=== PATIENT | male | born 1995 | race American Indian/Alaskan Native ===

== ENCOUNTER 2016-09-27 05:37 | Emergency (ER) | payer SELFPAY ==
[2016-09-27 07:30] VITALS: BP 118/73
[2016-09-27 08:29] LABS: Basophils % (Auto) 0.7 % (0.0-1.8); Hematocrit 41.2 % (35.5-45.6); Hemoglobin 13.6 gm/dl (11.8-15.2); Mean Corpuscular HGB Conc 33 % (32-34); Mean Corpuscular Hemoglobin 28 pg (28-32); Mean Corpuscular Volume 85 fl (84-94); Platelet Count 242 K/mm3 (140-440); Red Blood Count 4.84 M/mm3 (3.65-5.03); White Blood Count 5.8 K/mm3 (4.5-11.0)
[2016-09-27 08:35] LABS: Urine Drugs of Abuse Note Disclamer
[2016-09-27 08:56] LABS: Anion Gap 19 mmol/L; Blood Urea Nitrogen 12 mg/dL (9-20); Calcium 9.4 mg/dL (8.4-10.2); Carbon Dioxide 26 mmol/L (22-30); Chloride 101.3 mmol/L (98-107); Glucose 97 mg/dL (75-100); Potassium 4.4 mmol/L (3.6-5.0); Sodium 142 mmol/L (137-145)
[2016-09-27 09:12] LABS: Bilirubin,Urine NEG (Negative); Blood,Urine NEG (Negative); Ketones,Urine TR mg/dL (Negative); Leukocyte Esterase,Urine TR (Negative); Mucus,Urine 2+ /HPF; Nitrite,Urine NEG (Negative)
== END 2016-09-27 07:45 | disposition left against medical advice (07) ==
LOC: ED 05:37
DX: M79.676 Pain in unspecified toe(s) (principal); F31.9 Bipolar disorder, unspecified; E11.9 Type 2 diabetes mellitus without complications; F17.200 Nicotine dependence, unspecified, uncomplicated; F14.90 Cocaine use, unspecified, uncomplicated; Z88.8 Allergy status to other drugs, medicaments and biological substances; Z53.21 Procedure and treatment not carried out due to patient leaving prior to being seen by health care provider
CPT/HCPCS: 36415; 80048; 80307; 81001; 82962; 85025; G0480; 80320

== ENCOUNTER 2017-07-10 17:50 | Emergency (ER) | payer MEDICAID ==
[2017-07-10 18:34] LABS: Basophils # (Auto) 0.1 K/mm3 (0.0-0.1); Basophils % (Auto) 0.7 % (0.0-1.8); Eosinophils # (Auto) 0.3 K/mm3 (0.0-0.4); Eosinophils % (Auto) 3.5 % (0.0-4.3); Hematocrit 40.2 % (35.5-45.6); Hemoglobin 12.9 gm/dl (11.8-15.2); Lymphocytes # (Auto) 2.9 K/mm3 (1.2-5.4); Lymphocytes % (Auto) 37.6 % (13.4-35.0); Mean Corpuscular HGB Conc 32 % (32-34); Mean Corpuscular Hemoglobin 27 pg (28-32); Mean Corpuscular Volume 84 fl (84-94); Monocytes # (Auto) 0.7 K/mm3 (0.0-0.8); Monocytes % (Auto) 9.6 % (0.0-7.3); Platelet Count 266 K/mm3 (140-440); Red Blood Count 4.78 M/mm3 (3.65-5.03); Red Cell Distribution Width 19.5 % (13.2-15.2)
--- NOTE | 2017-07-10 18:55 | Emergency Department Report ---
ED Psych HPI - General Chief Complaint: Psych Stated Complaint: NEEDS PSYCH MEDS Time Seen by Provider: 07/10/17 18:42 Source: patient, family Mode of arrival: Ambulatory - History of Present Illness Initial Comments: Patient is 22 years old male history of schizophrenia brought by mother stating that patient has been laughing and hearing voices, very aggressive to her. His mother stated that he has been punching the air and breaking glass and tearing- up her furniture. When questioned patient started laughing. MD Complaint: altered mental status Associated Psychiatric Symptoms: auditory hallucinations History of same: Yes Quality: constant - Related Data Allergies Allergy/AdvReac Type Severity Reaction Status Date / Time tramadol Allergy Unknown Verified 09/27/16 07:20 ED Review of Systems ROS: Stated complaint: NEEDS PSYCH MEDS Other details as noted in HPI Comment: All other systems reviewed and negative Constitutional: denies: chills, fever Cardiovascular: denies: chest pain, palpitations ED Past Medical Hx - Past Medical History Hx Diabetes: No Hx Psychiatric Treatment: Yes (Bipolar, SCHZOPHENIA) - Surgical History Past Surgical History?: No Additional Surgical History: Stomach - Social History Smoking Status: Current Every Day Smoker Substance Use Type: Marijuana ED Physical Exam - General Limitations: No Limitations General appearance: alert, in no apparent distress, anxious - Head Head exam: Present: atraumatic, normocephalic - ENT ENT exam: Present: normal exam, mucous membranes moist - Respiratory Respiratory exam: Present: normal lung sounds bilaterally. Absent: respiratory distress, wheezes, chest wall tenderness - Cardiovascular Cardiovascular Exam: Present: regular rate, normal rhythm, normal heart sounds - GI/Abdominal GI/Abdominal exam: Present: soft, normal bowel sounds. Absent: distended, tenderness, guarding, rebound, rigid, mass, bruit, pulsatile mass - Back Exam Back exam: Present: normal inspection, full ROM. Absent: CVA tenderness (L) - Neurological Exam Neurological exam: Present: alert, altered, CN II-XII intact, normal gait, reflexes normal. Absent: motor sensory deficit - Psychiatric Psychiatric exam: Present: agitated - Skin Skin exam: Present: warm, intact, normal color ED Course Vital Signs 07/10/17 17:57 Temperature 97.7 F Pulse Rate 86 Respiratory 14 Rate Blood Pressure 133/87 O2 Sat by Pulse 100 Oximetry ED Medical Decision Making - Lab Data Result diagrams: 07/10/17 18:10 Critical care attestation.: If time is entered above; I have spent that time in minutes in the direct care of this critically ill patient, excluding procedure time. ED Disposition Clinical Impression: Acute psychosis Disposition: [id number]/TX-65 PSY HOSP/PSY UNIT Is pt being admited?: No Condition: Stable Referrals: PRIMARY CARE, [Primary Care Provider] - 3-5 Days
[2017-07-10 19:05] LABS: BUN/Creatinine Ratio 11; Blood Urea Nitrogen 11 mg/dL (9-20); Calcium 9.4 mg/dL (8.4-10.2); Hemolysis Index 7
[2017-07-11] MEDS ORDERED: GEODON IM ONE ×2 (09:47→09:50)
[2017-07-11] MEDS ORDERED: DESYREL PO ONE (23:17)
--- NOTE | 2017-07-12 11:24 | Consultation ---
History of Present Illness - Reason for Consult Consult date: 07/12/17 Reason for consult: Mental Health Evaluation Requesting physician: NIRAJ NIÑO - Chief Complaint Chief complaint: "I need to go to work" - History of Present Psychiatric Illness Patient is 22 years old AA male brought to the ER for hallucinations and aggressive behavior towards his mother. Today the patient is anxious and disorganized during the assessment. Upon my arrival to the patient's room, he was talking to the wall and having a conversation with himself. Once I intervened, he stated, "I need to get to work." His answers to questions were not logical. When asked about sleeping, he stated, "Who needs sleep." The patient had to be redirected multiple times, possibly responding to some type of stimuli. He denies SI/HI's, but cannot confirm or deny AVH's. He denies recreational drug use and alcohol consumption (etoh). Medications and Allergies Allergies Allergy/AdvReac Type Severity Reaction Status Date / Time tramadol Allergy Unknown Verified 09/27/16 07:20 Home Medications Medication Instructions Recorded Confirmed Last Taken Type No Known Home Medications [No 07/10/17 07/10/17 Unknown History Reported Home Medications] Mental Status Exam - Vital signs Last Vital Signs Temp 98.3 F 07/11/17 19:50 Pulse 90 07/11/17 19:50 Resp 16 07/11/17 19:50 BP 133/87 07/11/17 19:50 Pulse Ox 100 07/11/17 19:50 - Exam Narrative exam: MSE: Appearance: anxious Behavior: good eye contact Speech: regular rate and low tone, hyperverbal Mood: "okay" Affect: irritable Thought Process: tangential Thought Content: denies SI/HI's, he cannot confirm or deny AVH's, disorganized Motor Activity: ambulatory Cognition: A/O x 3 Insight: poor Judgment: poor Results Result Diagrams: 07/10/17 18:10 07/10/17 18:10 All other labs normal. Assessment and Plan Assessment and plan: Impression: Unspecified Mood DO with psy features. Today the patient is anxious and disorganized during the assessment. Patient is hyper verbal. No IDS on admission. DDx: Bipolar DO, R/O Schizophrenia Recommendation/Plan: Continue 1013 with placement to inpatient psy services. Start Risperdal 1 mg PO HS for mood/psychosis and Depakote 500 mg PO BID for mood. Discussed possible metabolic side effects of Risperdal with patient.
[2017-07-12 12:14] LABS: Alanine Aminotransferase 12 units/L (7-56)
[2017-07-12 15:10] LABS: Lipase 14 units/L (13-60)
[2017-07-12] MEDS: RisperDAL PO SCH (22:09)
[2017-07-12] MEDS ORDERED: ATIVAN IM ONE (22:48)
--- NOTE | 2017-07-13 10:53 | Progress Note ---
Subjective - Reason for Consult Consult date: 07/13/17 Reason for consult: Psychiatry Follow-up - Chief Complaint Chief complaint: "I am hungry" Patient is 22 years old AA male brought to the ER for hallucinations and aggressive behavior towards his mother. Today the patient is calm during the assessment. He stated that he was hungry and slept "okay" last night. He was asked several questions, he would nodded head to answer. After several attempts to get the patient to talk, he put his head under the sheets. He stated, "I want to get more rest." Per the MAR, the patient was given Ativan PRN for agitation last night. No gestures of SI/HI's. Mental Status Exam - Vital signs Last Vital Signs Temp 98.9 F 07/12/17 22:00 Pulse 75 07/12/17 22:00 Resp 16 07/12/17 22:00 BP 119/68 07/12/17 22:00 Pulse Ox 99 07/12/17 22:00 - Exam Narrative exam: MSE: Appearance: calm Behavior: good eye contact Speech: regular rate and low tone Mood: "okay" Affect: congruent to mood Thought Process: circumstantial Thought Content: no gestures of SI/HI's and AVH's Motor Activity: ambulatory Cognition: A/O x 3 Insight: variable Judgment: variable Assessment and Plan Impression: Unspecified Mood DO with psy features. Today the patient is calm during the assessment. No UDS on admission. DDx: Bipolar DO, R/O Schizophrenia Recommendation/Plan: Continue 1013 with placement to inpatient psy services. Continue Risperdal 1 mg PO HS for mood/psychosis and Depakote 500 mg PO BID for mood. Discussed possible metabolic side effects of Risperdal with patient.
[2017-07-13] MEDS: RisperDAL PO SCH (22:09)
[2017-07-14] MEDS: RisperDAL PO SCH (22:19)
--- NOTE | 2017-07-15 13:25 | Progress Note ---
Subjective - Reason for Consult Consult date: 07/15/17 Reason for consult: Psychiatry Follow-up - Chief Complaint Chief complaint: "I am hungry" Patient is 22 years old AA male brought to the ER for hallucinations and aggressive behavior towards his mother. Today the patient is calm, but disorganized during the assessment. When he was asked questions, his answers were not logical. He had to be redirected several times to keep him on topic. He denies SI/HI's and AVH's. Per the staff, no behavioral disturbance overnight. Mental Status Exam - Vital signs Last Vital Signs Temp 98.8 F 07/14/17 22:00 Pulse 84 07/14/17 22:00 Resp 18 07/15/17 11:38 BP 112/70 07/14/17 22:00 Pulse Ox 98 07/15/17 11:38 - Exam Narrative exam: MSE: Appearance: calm, cooperative Behavior: good eye contact Speech: regular rate and low tone Mood: "okay" Affect: congruent to mood Thought Process: circumstantial Thought Content: no gestures of SI/HI's and AVH's, disorganized Motor Activity: ambulatory Cognition: A/O x 3 Insight: variable Judgment: variable Assessment and Plan Impression: Unspecified Mood DO with psy features. Today the patient is calm, disorganized during the assessment. No UDS on admission. DDx: Bipolar DO, R/O Schizophrenia Recommendation/Plan: Continue 1013 with placement to inpatient psy services. Modify Risperdal to 1 mg PO BID for mood/psychosis and continue Depakote 500 mg PO BID for mood. Discussed possible metabolic side effects of Risperdal with patient.
[2017-07-15] MEDS: RisperDAL PO SCH ×2 (17:13→21:58)
--- NOTE | 2017-07-16 12:52 | Progress Note ---
Subjective - Reason for Consult Consult date: 07/16/17 Reason for consult: Psychiatry Follow-up - Chief Complaint Chief complaint: "How are you" Patient is 22 years old AA male brought to the ER for hallucinations and aggressive behavior towards his mother. Today the patient is calm and cooperative during the assessment. The patient is more organized today than previous assessments. Per the staff, no behavioral disturbance overnight by the patient. He denies SI/HI's and AVH's. The patient denies any side effects of his medications. Mental Status Exam - Vital signs Last Vital Signs Temp 98.0 F 07/15/17 22:00 Pulse 89 07/15/17 22:00 Resp 18 07/15/17 22:00 BP 118/70 07/15/17 22:00 Pulse Ox 99 07/15/17 22:00 - Exam Narrative exam: MSE: Appearance: calm, cooperative Behavior: good eye contact Speech: regular rate and low tone Mood: "okay" Affect: congruent to mood Thought Process: circumstantial Thought Content: no gestures of SI/HI's and AVH's, disorganized Motor Activity: ambulatory Cognition: A/O x 3 Insight: variable Judgment: variable Assessment and Plan Impression: Unspecified Mood DO with psy features. Today the patient is calm and cooperative during the assessment. No UDS on admission. DDx: Bipolar DO, R/O Schizophrenia Recommendation/Plan: Evaluate 1013 in 24 hours to determine proper dispo. Continue Risperdal to 1 mg PO BID for mood/psychosis and continue Depakote 500 mg PO BID for mood. Discussed possible metabolic side effects of Risperdal with patient. [facility] ordered for 07/17/2017. Patient given outpatient psy services for [facility].
[2017-07-16] MEDS: RisperDAL PO SCH (14:56)
[2017-07-17] MEDS: RisperDAL PO SCH ×3 (00:16→22:36)
--- NOTE | 2017-07-17 16:39 | Progress Note ---
Subjective - Reason for Consult Consult date: 07/17/17 Reason for consult: follow up - Chief Complaint Chief complaint: "Hey" Patient is 22 years old AA male brought to the ER for hallucinations and aggressive behavior towards his mother. Today the patient is calm and cooperative during the assessment. Thought disorganization present. He reports depression. Per the staff, no behavioral disturbance overnight by the patient. He denies SI/HI's and AVH's. The patient denies any side effects of his medications. Mental Status Exam - Vital signs Last Vital Signs Temp 98 F 07/17/17 09:51 Pulse 82 07/17/17 09:51 Resp 20 07/17/17 09:53 BP 120/70 07/17/17 09:51 Pulse Ox 100 07/17/17 09:51 - Exam Narrative exam: Appearance: calm, cooperative Behavior: minimal eye contact Speech: regular rate and low tone Mood: "depressed" Affect: congruent to mood Thought Process: circumstantial Thought Content: no gestures of SI/HI's and AVH's, disorganized Motor Activity: ambulatory Cognition: A/O x 3 Insight: variable Judgment: variable Assessment and Plan Impression: Unspecified Mood DO with psy features. Today the patient is calm and cooperative during the assessment. No UDS on admission. VPA 59.3 on 07/17/2017 DDx: Bipolar DO, R/O Schizophrenia Recommendation/Plan: Evaluate 1013 in 24 hours to determine proper dispo. Continue Risperdal to 1 mg PO BID for mood/psychosis and continue Depakote 500 mg PO BID for mood. Discussed possible metabolic side effects of Risperdal with patient.
[2017-07-18] MEDS: RisperDAL PO SCH ×2 (11:48→22:02)
--- NOTE | 2017-07-18 22:57 | Progress Note ---
Subjective - Reason for Consult Consult date: 07/18/17 Reason for consult: follow up - Chief Complaint Chief complaint: "Can I go home?" Patient is 22 years old AA male brought to the ER for hallucinations and aggressive behavior towards his mother. Today the patient is calm and cooperative during the assessment. He is perseverative about going home. Today , he denies depression. Per the staff, he was threatening to staff last night. He denies SI/HI's and AVH's. The patient denies any side effects of his medications. Mental Status Exam - Vital signs Last Vital Signs Temp 98.2 F 07/18/17 08:00 Pulse 67 07/18/17 08:00 Resp 15 07/18/17 08:00 BP 109/57 07/18/17 08:00 Pulse Ox 100 07/18/17 08:00 - Exam Narrative exam: Appearance: calm, cooperative Behavior:fair eye contact Speech: regular rate and low tone Mood: irritable Affect: congruent to mood Thought Process: circumstantial, perseverative Thought Content: no gestures of SI/HI's and AVH's, disorganized Motor Activity: ambulatory Cognition: A/O x 3 Insight: variable Judgment: variable Assessment and Plan Impression: Unspecified Mood DO with psy features. Today the patient is calm and cooperative during the assessment. No UDS on admission. VPA 59.3 on 07/17/2017 DDx: Bipolar DO, R/O Schizophrenia Recommendation/Plan: Evaluate 1013 in 24 hours to determine proper dispo. Continue Risperdal to 1 mg PO BID for mood/psychosis and continue Depakote 500 mg PO BID for mood. Discussed possible metabolic side effects of Risperdal with patient.
[2017-07-19 08:26] VITALS: BP 130/86
--- NOTE | 2017-07-19 10:18 | Progress Note ---
Subjective - Reason for Consult Consult date: 07/19/17 Reason for consult: Psychiatry Follow-up - Chief Complaint Chief complaint: "I feel better" Patient is 22 years old AA male brought to the ER for hallucinations and aggressive behavior towards his mother. Today the patient is calm and cooperative during the assessment. He stated that he want to go home. Per the staff, no behavioral disturbance overnight. He denies SI/HI's and AVH's. He denies any side effects of his medications. I spoke with his mother Fatemeh Mensah whom he resides with, stated that she will take her son to his outpatient psy appts. Mental Status Exam - Vital signs Last Vital Signs Temp 99.2 F 07/19/17 08:24 Pulse 64 07/19/17 08:24 Resp 16 07/19/17 08:24 BP 130/86 07/19/17 08:24 Pulse Ox 97 07/19/17 08:24 - Exam Narrative exam: MSE: Appearance: calm, cooperative Behavior: good eye contact Speech: regular rate and low tone Mood: "okay" Affect: congruent to mood Thought Process: logical Thought Content: denies SI/HI's and AVH's Motor Activity: ambulatory Cognition: A/O x 3 Insight: fair Judgment: fair Assessment and Plan Impression: Unspecified Mood DO with psy features. Today the patient is calm and cooperative during the assessment. No UDS on admission. DDx: Bipolar DO, R/O Schizophrenia Recommendation/Plan: 1013 has on this patient. Per my assessment he does not meet criteria for another 1013. Continue Risperdal to 1 mg PO BID for mood/psychosis and continue Depakote 500 mg PO BID for mood. Discussed possible metabolic side effects of Risperdal with patient. Patient given outpatient psy services for [facility]. Discussed with the patient and his mother the importance to follow-up with outpatient psy services once discharged. Discussed with patient and his mother that the medication Depakote need to be monitored by a Psychiatrist or [employer] [employer].
[2017-07-19] MEDS: RisperDAL PO SCH (10:20)
== END 2017-07-19 14:28 | disposition home or self-care (01) ==
LOC: ED 17:50 → EEVIPCON 17:50 → ED 07-19 14:28
DX: F31.9 Bipolar disorder, unspecified (principal); F20.9 Schizophrenia, unspecified; F17.200 Nicotine dependence, unspecified, uncomplicated; F12.10 Cannabis abuse, uncomplicated; Z88.6 Allergy status to analgesic agent
CPT/HCPCS: 36415; 80048; 80164; 82150; 83690; 84075; 84450; 84460; 85025; 96372; 99284; G0480; J2060; J3486; 80320; 99285

== ENCOUNTER 2017-09-06 19:59 | Emergency (ER) | payer MEDICAID ==
--- NOTE | 2017-09-06 20:28 | Emergency Department Report ---
ED Psych HPI - General Stated Complaint: MH Time Seen by Provider: 09/06/17 20:22 - History of Present Illness Initial Comments: Patient is a 22-year-old male with a history of schizophrenia whose mother has been trying to bring her to the hospital for the past 3 days. Patient has been off of his meds and has been very aggressive having auditory and visual hallucinations. Patient's been talking to people that aren't there punching ngo. Patient is threatened family is on numerous occasions believing that they are trying to harm him. Patient was at a gas station with his mother being transported here with he became more agitated and police were called. Patient went with police willingly at first but when they reached the hospital he tried to fight the police. Patient was brought to room 15 and given Geodon for his mild sedation. Patient is not able to give any organized history at this time and does appear to be responding to external stimuli. Patient is punching the padded ngo - Related Data Previous Rx's Medication Instructions Recorded Last Taken Type Divalproex ER [Depakote ER] 500 mg PO BID #60 tablet 07/19/17 Unknown Rx risperiDONE [RisperDAL] 1 mg PO BID #60 tablet 07/19/17 Unknown Rx Allergies Allergy/AdvReac Type Severity Reaction Status Date / Time tramadol Allergy Unknown Verified 09/27/16 07:20 ED Review of Systems ROS: Stated complaint: MH Other details as noted in HPI Comment: Unobtainable due to pts medical conditions ED Past Medical Hx - Past Medical History Previous Medical History?: Yes Hx Diabetes: No Hx Psychiatric Treatment: Yes (Bipolar, SCHZOPHENIA) - Surgical History Additional Surgical History: Stomach - Social History Smoking Status: Current Every Day Smoker Substance Use Type: Marijuana - Medications Home Medications: Home Medications Medication Instructions Recorded Confirmed Last Taken Type Divalproex ER [Depakote ER] 500 mg PO BID #60 tablet 07/19/17 Unknown Rx risperiDONE [RisperDAL] 1 mg PO BID #60 tablet 07/19/17 Unknown Rx ED Physical Exam - General General appearance: anxious - Head Head exam: Present: atraumatic, normocephalic - Eye Eye exam: Present: normal appearance - Neck Neck exam: Present: normal inspection - Respiratory Respiratory exam: Present: normal lung sounds bilaterally. Absent: respiratory distress, wheezes, rales, rhonchi - Cardiovascular Cardiovascular Exam: Present: tachycardia - GI/Abdominal GI/Abdominal exam: Present: soft. Absent: distended, tenderness, guarding, rebound, rigid - Neurological Exam Neurological exam: Present: altered - Psychiatric Psychiatric exam: Present: agitated, anxious, homicidal ideation - Skin Skin exam: Present: warm, dry, intact ED Medical Decision Making - Lab Data Result diagrams: 09/06/17 20:40 09/06/17 20:40 - Medical Decision Making Patient is a 22-year-old Italian male who is presenting with acute psychosis secondary to schizophrenia. Patient also is intoxicated with cocaine and marijuana as well. Patient is medically cleared for psych assessment at this time. Critical care attestation.: If time is entered above; I have spent that time in minutes in the direct care of this critically ill patient, excluding procedure time. ED Disposition Clinical Impression: Acute schizophrenia episode, Cocaine abuse, Marijuana abuse Disposition: DC/TX-65 PSY HOSP/PSY UNIT Is pt being admited?: No Does the pt Need Aspirin: No Condition: Stable
[2017-09-06] MEDS ORDERED: GEODON IM ONE (20:32)
[2017-09-06 20:50] LABS: Basophils % (Auto) 0.4 % (0.0-1.8); Eosinophils # (Auto) 0.2 K/mm3 (0.0-0.4); Eosinophils % (Auto) 2.6 % (0.0-4.3); Hematocrit 41.6 % (35.5-45.6); Hemoglobin 13.8 gm/dl (11.8-15.2); Lymphocytes # (Auto) 2.1 K/mm3 (1.2-5.4); Lymphocytes % (Auto) 24.4 % (13.4-35.0); Mean Corpuscular HGB Conc 33 % (32-34); Mean Corpuscular Hemoglobin 29 pg (28-32); Mean Corpuscular Volume 87 fl (84-94); Monocytes # (Auto) 0.8 K/mm3 (0.0-0.8); Monocytes % (Auto) 9.7 % (0.0-7.3); Platelet Count 258 K/mm3 (140-440); Red Blood Count 4.79 M/mm3 (3.65-5.03)
[2017-09-06 20:56] LABS: Red Cell Distribution Width 20.6 % (13.2-15.2)
[2017-09-06 21:05] LABS: Alanine Aminotransferase 10 units/L (7-56); Albumin 4.5 g/dL (3.9-5); BUN/Creatinine Ratio 15; Blood Urea Nitrogen 16 mg/dL (9-20); Calcium 9.2 mg/dL (8.4-10.2); Hemolysis Index 20
[2017-09-06 21:09] LABS: Amphetamine Screen,Urine PRESUMPTIVE NEGATIVE; Benzodiazepines Screen,Urine PRESUMPTIVE NEGATIVE; Cannabinoid Screen,Urine PRESUMPTIVE POSITIVE; Cocaine Screen,Urine PRESUMPTIVE POSITIVE; Methadone Screen,Urine PRESUMPTIVE NEGATIVE; Opiate Screen,Urine PRESUMPTIVE NEGATIVE
--- NOTE | 2017-09-07 04:13 | XRay Report ---
FINAL REPORT EXAM: XR KNEE 3V LT HISTORY: pain after altercation with police TECHNIQUE: Four views of the left knee were obtained. FINDINGS: There is no evidence of fracture or joint effusion. All 3 compartments are well maintained. The soft tissues appear normal. IMPRESSION: Within normal limits.
--- NOTE | 2017-09-07 16:44 | Consultation ---
History of Present Illness - Reason for Consult Consult date: 09/07/17 Reason for consult: Mental Health Evaluation Requesting physician: NEMESIO SÁNCHEZ - Chief Complaint Chief complaint: "Its my mom" - History of Present Psychiatric Illness Patient is a 22-year-old male with a history of schizophrenia presenting to the hospital with bizarre behavior. This patient is known to me. The patient is calm , but disorganized during the assessment. The patient could not explain why he was brought to the hospital other than saying it's my mom's fault call her. The patient is tangent and had to be redirected several times to keep him of topic. This patient is a poor historian at this time. Medications and Allergies Allergies Allergy/AdvReac Type Severity Reaction Status Date / Time tramadol Allergy Unknown Verified 09/27/16 07:20 Home Medications Medication Instructions Recorded Confirmed Last Taken Type Divalproex ER [Depakote ER] 500 mg PO BID #60 tablet 07/19/17 Unknown Rx risperiDONE [RisperDAL] 1 mg PO BID #60 tablet 07/19/17 Unknown Rx Mental Status Exam - Vital signs Last Vital Signs Temp 98.1 F 09/07/17 11:35 Pulse 78 09/07/17 11:35 Resp 18 09/07/17 11:35 BP 121/61 09/07/17 11:35 Pulse Ox 98 09/07/17 11:35 - Exam Narrative exam: MSE: Appearance: calm Behavior: good eye contact Speech: regular rate and low tone, hyperverbal Mood: "okay" Affect: congruent to mood Thought Process: tangential Thought Content: denies SI/HI's and AVH's, disorganized, delusional Motor Activity: ambulatory Cognition: A/O x 3 Insight: poor Judgment: poor Results Result Diagrams: 09/06/17 20:40 09/06/17 20:40 Abnormal lab results 09/06/17 09/06/17 09/06/17 Range/Units 20:40 20:40 20:40 RDW 20.6 H (13.2-15.2) % [place] % (Auto) 9.7 H (0.0-7.3) % Salicylates < 0.3 L (2.8-20.0) mg/dL Acetaminophen < 5.0 L (10.0-30.0) ug/mL All other labs normal. Assessment and Plan Assessment and plan: Impression: Unspecified Psychosis. Cannabis Use DO. Substance use DO (cocaine). The patient is calm, but disorganized during the assessment. DDx: Bipolar DO, R/O Schizophrenia, R/O Substance Induced Psychosis Recommendation/Plan: Continue 1013 with placement to [place] today.
[2017-09-07 20:07] LABS: Hematocrit 40.2 % (35.5-45.6); Hemoglobin 12.8 gm/dl (11.8-15.2)
[2017-09-08 06:04] LABS: Bacteria,Urine 4+ /HPF (Negative); Bilirubin,Urine NEG (Negative); Blood,Urine NEG (Negative); Color,Urine Yellow (Yellow); Mucus,Urine 3+ /HPF; Protein,Urine <15 mg/dL mg/dL (Negative); Sperm,Urine 3+ /HPF (NP)
[2017-09-08] MEDS ORDERED: BENADRYL IM PRN (16:54)
[2017-09-08] MEDS ORDERED: ATIVAN IM PRN (16:54)
[2017-09-08] MEDS ORDERED: HALDOL IM PRN (16:54)
--- NOTE | 2017-09-09 15:10 | Progress Note ---
Subjective - Reason for Consult Consult date: 09/09/17 Reason for consult: Psychiatry Follow-up - Chief Complaint Chief complaint: "What" Patient is a 22-year-old male with a history of schizophrenia presenting to the hospital with bizarre behavior. This patient is known to me. Today the patient is calm, but disorganized during the assessment. He continue to be tangent, and had to be redirected throughout the interview. He is adamant about saying his mother is his problem. He denies SI/HI's and AVH's. Mental Status Exam - Vital signs Last Vital Signs Temp 98.4 F 09/09/17 10:00 Pulse 74 09/09/17 10:00 Resp 20 09/09/17 10:00 BP 116/69 09/09/17 10:00 Pulse Ox 99 09/09/17 10:00 - Exam Narrative exam: MSE: Appearance: calm Behavior: good eye contact Speech: regular rate and low tone Mood: "okay" Affect: congruent to mood Thought Process: tangential Thought Content: denies SI/HI's and AVH's, disorganized, delusional Motor Activity: ambulatory Cognition: A/O x 3 Insight: poor Judgment: poor Assessment and Plan Impression: Unspecified Psychosis. Cannabis Use DO. Substance use DO (cocaine). The patient is calm, but disorganized during the assessment. DDx: Bipolar DO, R/O Schizophrenia, R/O Substance Induced Psychosis Recommendation/Plan: Continue 1013 with placement to inpatient psy services. Start Risperdal 1 mg PO for psychosis. Discussed metabolic side effects of Risperdal with patient.
[2017-09-09] MEDS: RisperDAL PO SCH (22:20)
--- NOTE | 2017-09-10 17:55 | Progress Note ---
Subjective - Reason for Consult Consult date: 09/10/17 Reason for consult: Psychiatric Follow Up - Chief Complaint Chief complaint: Patient is a 22-year-old male with a history of schizophrenia presented to the hospital with bizarre behavior. Today, he continues to be isolated and withdrawn in his room in the emergency room. Patient continues to endorse feeling paranoid and also having auditory hallucinations. He presented with disorganized thought process. He was calm during the discussion. Denies any current suicidal or homicidal ideations. Mental Status Exam - Vital signs Last Vital Signs Temp 98.3 F 09/10/17 10:00 Pulse 68 09/10/17 10:00 Resp 18 09/10/17 10:00 BP 121/76 09/10/17 10:00 Pulse Ox 98 09/10/17 10:00 - Exam Narrative exam: MSE: Appearance: calm Behavior: good eye contact Speech: regular rate and low tone Mood: "okay" Affect: congruent to mood Thought Process: tangential Thought Content: denies SI/HI's and AVH's, disorganized, delusional Motor Activity: ambulatory Cognition: A/O x 3 Insight: poor Judgment: poor Assessment and Plan Impression: Unspecified Psychosis. Cannabis Use DO. Substance use DO (cocaine). The patient is calm, but disorganized during the assessment. DDx: Bipolar DO, R/O Schizophrenia, R/O Substance Induced Psychosis Recommendation/Plan: Continue 1013 with placement to inpatient psy services. Continue Risperdal 1 mg PO for psychosis. Discussed metabolic side effects of Risperdal with patient.
[2017-09-10] MEDS ORDERED: RisperDAL ONE (22:08)
[2017-09-10] MEDS: RisperDAL PO SCH (22:23)
[2017-09-11] MEDS ORDERED: RisperDAL ONE (21:48)
[2017-09-11] MEDS: RisperDAL PO SCH (22:16)
[2017-09-12] MEDS ORDERED: RisperDAL ONE (22:05)
[2017-09-12] MEDS: RisperDAL PO SCH (22:28)
[2017-09-13] MEDS ORDERED: ZOFRAN ODT ONE (10:22)
[2017-09-13] MEDS ORDERED: ZOFRAN ODT PO ONE (10:31)
[2017-09-13] MEDS ORDERED: ATIVAN ONE (10:45)
--- NOTE | 2017-09-13 12:17 | Progress Note ---
Subjective - Reason for Consult Consult date: 09/13/17 Reason for consult: Psychiatry Follow-up - Chief Complaint Chief complaint: "I am ready to go" Patient is a 22-year-old male with a history of schizophrenia presented to the hospital with bizarre behavior. Today the patient is calm and cooperative during the assessment. The patient is more organized with his thoughts than previous assessments. He denies SI/HI's, AVH's, paranoid thoughts. Per the staff , no behavioral disturbance over the weekend. He denies any side effects of his medications. Mental Status Exam - Vital signs Last Vital Signs Temp 98.1 F 09/13/17 09:45 Pulse 95 H 09/13/17 09:45 Resp 16 09/13/17 09:45 BP 123/67 09/13/17 09:45 Pulse Ox 100 09/13/17 09:45 - Exam Narrative exam: MSE: Appearance: calm, cooperative Behavior: good eye contact Speech: regular rate and low tone Mood: "okay" Affect: congruent to mood Thought Process: more organized Thought Content: denies SI/HI's and AVH's Motor Activity: ambulatory Cognition: A/O x 3 Insight: fair Judgment: fair Assessment and Plan Impression: Unspecified Psychosis. Cannabis Use DO. Substance use DO (cocaine). The patient is calm and cooperative duing the assessment. DDx: Bipolar DO, R/O Schizophrenia, R/O Substance Induced Psychosis Recommendation/Plan: Rescind 1013. Continue Risperdal 1 mg PO for psychosis. Discussed metabolic side effects of Risperdal with patient. The patient given outpatient psy/rehab services for [facility]. Discusses the importance to abstain from recreational drug use.
[2017-09-13] MEDS ORDERED: TYLENOL PO ONE (16:39)
[2017-09-13 20:02] LABS: Bilirubin,Urine NEG (Negative); Blood,Urine NEG (Negative); Color,Urine Yellow (Yellow); Mucus,Urine 2+ /HPF; Protein,Urine <15 mg/dL mg/dL (Negative); Urobilinogen,Urine < 2.0 mg/dL (<2.0)
[2017-09-13] MEDS ORDERED: RisperDAL ONE (22:29)
[2017-09-13] MEDS: RisperDAL PO SCH (22:55)
--- NOTE | 2017-09-14 00:28 | Progress Note ---
Subjective - Reason for Consult Consult date: 09/11/17 Reason for consult: Psychiatric Follow-up Evaluation - Chief Complaint Chief complaint: "I'm not good." Berto is a 22-year-old male with a history of schizophrenia presented to the hospital with bizarre behavior. Today patient presents anxious but cooperative. During assessment patient is seen responding to internal stimuli. He states, " I'm going through some stuff. I don't feel like I'm capable of being in the hospital." He endorses auditory hallucinations telling him to keep getting locked up." Patient is compliant with medication. He denies any side effects of his medications. Mental Status Exam - Vital signs Last Vital Signs Temp 98.3 F 09/13/17 23:35 Pulse 73 09/13/17 23:35 Resp 18 09/13/17 23:35 BP 113/69 09/13/17 23:35 Pulse Ox 99 09/13/17 23:35 - Exam Narrative exam: General Appearance: Casually dressed-hospital gown Attitude/ Behavior: Cooperative Sensorium: Distracted Orientation: Alert and oriented x 3 (person, place, time) Speech/Language: Normal rate and tone Mood: "Really bad" Affect: Congruent with mood Thought Process: Tangential Thought Content: Paranoid Perception: Auditory Hallucinations Concentration/Attention: Impaired Suicidal Ideation/Plan: "No" Homicidal Ideation/Plan: "No" Judgement: Poor Insight: Poor Assessment and Plan Impression: Unspecified Psychosis. Cannabis Use DO. Substance use DO (cocaine). Patient presents anxious with tangential thought process. He endorses paranoid thoughts and auditory hallucinations telling him he is going to keep getting locked up. DDx: Bipolar DO, R/O Schizophrenia, R/O Substance Induced Psychosis Recommendation/Plan: 1. Continue 1013 with placement to inpatient psychiatric services. 2. Will increase Risperdal 2 mg PO for psychosis. Discussed medications' indication, frequency and possible side effects.
--- NOTE | 2017-09-14 10:07 | Progress Note ---
Subjective - Reason for Consult Consult date: 09/14/17 Reason for consult: Psychiatry Follow-up - Chief Complaint Chief complaint: "Julsisa" Patient is a 22-year-old male with a history of schizophrenia presented to the hospital with bizarre behavior. Today the patient is calm and cooperative during the assessment. He denies SI/HI's and AVH's. He denies any side effects of his medication. Mental Status Exam - Vital signs Last Vital Signs Temp 98.3 F 09/13/17 23:35 Pulse 73 09/13/17 23:35 Resp 18 09/13/17 23:35 BP 113/69 09/13/17 23:35 Pulse Ox 99 09/13/17 23:35 - Exam Narrative exam: MSE: Appearance: calm, cooperative Behavior: good eye contact Speech: regular rate and low tone Mood: "okay" Affect: congruent to mood Thought Process: logical Thought Content: denies SI/HI's and AVH's Motor Activity: ambulatory Cognition: A/O x 3 Insight: fair Judgment: fair Assessment and Plan Impression: Unspecified Psychosis. Cannabis Use DO. Substance use DO (cocaine). The patient is calm and cooperative during the assessment. DDx: Bipolar DO, R/O Schizophrenia, R/O Substance Induced Psychosis Recommendation/Plan: The patient's 1013 was rescinded yesterday 09/13/2017 and currently pending discharge. Continue Risperdal 2 mg PO HS. Discussed metabolic side effects of Risperdal with patient. The patient given outpatient psy/rehab services for [facility]. Discussed the importance to abstain from recreational drug use. The patient is pending placement per Chuck Boner.
--- NOTE | 2017-09-14 15:34 | Emergency Department Report ---
Blank Doc - Documentation Documentation: I was asked by the psychiatric team to provide discharge paperwork and prescriptions for this patient. He was seen a few days ago for some acute psychosis. Over the past few days he has been started on an titrated up onto Risperdal 2 mg by mouth at night. The patient was evaluated by the psychiatric team today who felt that he was calm and appropriate and no longer required inpatient psychiatric transfer and treatment and they have rescinded his 1013. As per their request, the patient will be given a referral for the [facility] and will be given a short prescription of the Risperdal until he can follow up outpatient.
[2017-09-14 16:22] VITALS: BP 125/72
--- NOTE | 2017-09-14 23:44 | Progress Note ---
Subjective - Reason for Consult Consult date: 09/08/17 Reason for consult: Psychiatric Follow-up Evaluation - Chief Complaint Chief complaint: "I feel alright. " Patient is a 22-year-old male with a history of Schizophrenia presented to the hospital with bizarre behavior. He reports, " I'm here because my mom thought I was paranoid, hearing voices, and seeing things." During assessment patient see RIS- laughing inappropriately. Paranoid ideations are noted. He denies SI/ HI. Psychosis is evident. Patient is compliant with medication. No side effects are indicated. Mental Status Exam - Vital signs Last Vital Signs Temp 98.5 F 09/14/17 15:35 Pulse 98 H 09/14/17 15:35 Resp 18 09/14/17 15:35 BP 125/72 09/14/17 15:35 Pulse Ox 99 09/14/17 15:35 - Exam Narrative exam: General Appearance: Casually dressed-hospital gown Attitude/ Behavior: Cooperative but evasive/guarded Eye Contact: Intermittent Sensorium: Distracted Orientation: Alert and oriented x 3 (person, place, time) Musculoskeletal Activity: WNL Speech/Language: Normal rate and tone Mood: "Alright" Affect: Congruent with mood Thought Process: Tangential, circumstantial Thought Content: Paranoid Perception: Auditory Hallucinations Concentration/Attention: Impaired Suicidal Ideation/Plan: "No" Homicidal Ideation/Plan: "No" Judgement: Poor Insight: Poor Assessment and Plan Impression: Unspecified Psychosis. Cannabis Use DO. Substance use DO (cocaine). Patient presents with tangential thought process. Patient endorses psychosis ( paranoia and auditory hallucinations). He denies SI/HI. DDx: Bipolar DO, R/O Schizophrenia, R/O Substance Induced Psychosis Recommendation/Plan: 1. Continue 1013 with placement to [place] today 2. Continue PRN medication as necessary.
== END 2017-09-14 03:35 | disposition home or self-care (01) ==
LOC: ED 19:59 → EEVIPCON 19:59 → ED 09-14 03:35
DX: F20.9 Schizophrenia, unspecified (principal); F14.10 Cocaine abuse, uncomplicated; F12.10 Cannabis abuse, uncomplicated
CPT/HCPCS: 36415; 73562; 80053; 80307; 81001; 85014; 85018; 85025; 96372; 99285; G0480; J1200; J1630; J2060; J3486; 80320; Q0162